=== PATIENT | male | born 1945 | race Caucasian/White ===

== ENCOUNTER 2021-09-30 15:29 | Inpatient (IN) | payer OTHER, BC ==
[2021-09-30] MEDS ORDERED: ACETAMINOPHEN 1000 MG/100 ML BAG IVPB ONE (15:52)
[2021-09-30] MEDS ORDERED: ACETAMINOPHEN INJECTION 100 ML IVPB ONE (16:25)
[2021-09-30 17:17] LABS: VENOUS BASE EXCESS 5.9 mmol/L (-2-2); VENOUS O2 SATURATION 92.2 % (70-80); VENOUS PCO2 56.5 mmHg (38-52); VENOUS PH 7.378 (7.310-7.410)
[2021-09-30 17:25] LABS: BASO % 0.1 % (0-2.0); HEMATOCRIT 29.5 % (35.4-49); HEMOGLOBIN 9.7 GM/dL (11.7-16.9); LYMPH % 2.1 % (8-40); MCH 30.6 pg (25.7-33.7); MEAN CELL VOLUME 92.7 fl (80-96); MEAN PLT VOLUME 9.9 fl (7.5-11.1); MONO % 1.9 % (3.8-10.2); NEUT % 95.9 % (42.8-82.8); PLATELET COUNT 395 10^3/uL (134-434); RBC 3.18 M/mm3 (4.00-5.60); RDW 15.1 % (11.9-15.9); WHITE BLOOD COUNT 23.4 K/mm3 (4.0-10.0)
[2021-09-30 17:26] LABS: INR 1.15 (0.83-1.09); PROTHROMBIN TIME (PATIENT) 13.3 SEC (9.7-13.0)
[2021-09-30 17:29] LABS: ACTIVATED PTT 26.6 SECONDS (25.2-36.5)
[2021-09-30 17:35] LABS: EPI CELLS 6 /uL (0-25.1); HYALINE CASTS 0 /uL (0-3.1); URINE APPEARANCE CLEAR; URINE BACTERIA 1 /uL (0-1359); URINE BILIRUBIN NEGATIVE (NEGATIVE); URINE COLOR YELLOW; URINE GLUCOSE (UA) NEGATIVE (NEGATIVE); URINE KETONE NEGATIVE (NEGATIVE); URINE LEUK ESTERASE NEGATIVE (NEGATIVE); URINE NITRITE NEGATIVE (NEGATIVE); URINE PROTEIN 2+ (NEGATIVE); URINE RBC 330 /uL (0-23.9); URINE UROBILINOGEN 0.2 mg/dL (0.2-1.0); URINE WBC 8 /uL (0-25.8)
[2021-09-30 18:00] LABS: ANISOCYTOSIS 1+; MACROCYTOSIS 0
[2021-09-30 18:29] LABS: CALCIUM 9.1 mg/dL (8.5-10.1)
[2021-09-30 18:30] LABS: ALBUMIN 2.3 g/dl (3.4-5.0); BLOOD UREA NITROGEN 37.2 mg/dL (7-18)
[2021-09-30 18:33] LABS: CREATININE 0.9 mg/dL (0.55-1.3)
[2021-09-30 18:34] LABS: BILIRUBIN,TOTAL 0.4 mg/dL (0.2-1)
[2021-09-30 18:42] LABS: LACTIC ACID 2.7 mmol/L (0.4-2.0)
[2021-09-30] MEDS ORDERED: SODIUM CHLORIDE 0.9% 500 ML INFUS.BAG IV ONE (19:14)
[2021-09-30] MEDS ORDERED: VANCOMYCIN 1 GM in D5W (PRE-DOCKED) 1,000 MG/250 ML IVPB ONE (19:50)
[2021-09-30] MEDS ORDERED: PIPERACILLIN/TAZOB 3.375 GM 3.375 GM in DEXTROSE 5%-WATER - 50 ML IVPB ONE (19:50)
[2021-09-30 20:20] LABS: N-TERMINAL BNP 8401.4 pg/ml (5-450)
[2021-09-30 21:07] LABS: PLATELET ESTIMATE ADEQUATE
[2021-09-30] MEDS ORDERED: VANCOMYCIN 1 GRAM (PRE-DOCKED) 1,000 MG/250 ML BAG IVPB ONE (21:31)
[2021-09-30] MEDS ORDERED: PIPERACILLIN/TAZOB 3.375 GM 3.375 GM/50 ML BAG IVPB ONE (21:32)
[2021-09-30] MEDS ORDERED: clonazePAM 0.5 MG TABLET GT ONE (23:21)
[2021-09-30] MEDS ORDERED: SIMETHICONE 40 MG/0.6 ML BOTTLE GT PRN (23:22)
[2021-09-30] MEDS ORDERED: oxyCODONE HCL 5 MG TABLET GT PRN ×2 (23:24→23:25)
[2021-09-30] MEDS ORDERED: METOPROLOL TARTRATE 25 MG TABLET (FP) ONE (23:40)
[2021-09-30] MEDS ORDERED: METOPROLOL TARTRATE 50 MG TABLET (FP) GT SCH (23:45)
[2021-10-01 00:26] LABS: LACTIC ACID 3.3 mmol/L (0.4-2.0)
[2021-10-01] MEDS ORDERED: SODIUM CHLORIDE 250 ML IV STA ×2 (00:45→10:14)
[2021-10-01] MEDS ORDERED: PIPERACILLIN/TAZOBACTAM 4.5 GM VIAL IVPB ONE ×3 (03:50→10:01)
[2021-10-01] MEDS ORDERED: DEXTROSE 5%-WATER 100 ML IVPB ONE ×4 (03:50→12:34)
[2021-10-01] MEDS: PIPERACILLIN/TAZOB 4.5 GM 4.5 GM in DEXTROSE 5%-WATER 100 ML IVPB SCH ×2 (03:55→10:02)
[2021-10-01 04:40] LABS: LACTIC ACID 2.5 mmol/L (0.4-2.0)
[2021-10-01] MEDS ORDERED: METOPROLOL TARTRATE 50 MG TABLET (FP) ONE ×2 (05:00→21:03)
[2021-10-01] MEDS ORDERED: METOPROLOL TARTRATE 25 MG TABLET (FP) ONE ×2 (05:00→21:03)
[2021-10-01] MEDS: METOPROLOL TARTRATE 50 MG, METOPROLOL TARTRATE 25 MG GT SCH ×3 (05:16→21:11)
[2021-10-01 09:58] LABS: HEMATOCRIT 26.1 % (35.4-49); HEMOGLOBIN 8.4 GM/dL (11.7-16.9); MCH 30.2 pg (25.7-33.7); MCHC 32.4 g/dl (32.0-35.9); MEAN CELL VOLUME 93.2 fl (80-96); MEAN PLT VOLUME 9.5 fl (7.5-11.1); PLATELET COUNT 328 10^3/uL (134-434); RDW 15.1 % (11.9-15.9); WHITE BLOOD COUNT 22.5 K/mm3 (4.0-10.0)
[2021-10-01] MEDS ORDERED: FUROSEMIDE 20 MG TABLET (FP) GT SCH (10:00)
[2021-10-01] MEDS: PANTOPRAZOLE SODIUM 40 MG VIAL IVPUSH SCH (10:03)
[2021-10-01] MEDS: ESCITALOPRAM OXALATE 10 MG TABLET GT SCH (10:05)
[2021-10-01] MEDS: DIGOXIN 0.125 MG TABLET GT SCH (10:06)
[2021-10-01] MEDS: clonazePAM 0.5 MG TABLET GT SCH ×2 (10:07→21:23)
[2021-10-01 10:23] LABS: BLOOD UREA NITROGEN 38.7 mg/dL (7-18); CALCIUM 9.1 mg/dL (8.5-10.1)
[2021-10-01 10:29] LABS: BILIRUBIN,TOTAL 0.8 mg/dL (0.2-1)
[2021-10-01 10:40] LABS: ANISOCYTOSIS 1+; MACROCYTOSIS 0
[2021-10-01] MEDS ORDERED: VANCOMYCIN/WATER FOR INJ (PEG) 1,000 MG/200 ML BAG IVPB SCH (11:00)
[2021-10-01] MEDS ORDERED: CEFEPIME 2 GM in DEXTROSE 5%-WATER - 100 ML IVPB SCH (11:00)
[2021-10-01] MEDS ORDERED: CEFEPIME HCL 2 GM VIAL (RESTRICTED TO ID) ONE (12:34)
[2021-10-01] MEDS: CEFEPIME 2 GM in DEXTROSE 5%-WATER 100 ML IVPB SCH (17:12)
[2021-10-02] MEDS ORDERED: ACETAMINOPHEN 650 MG/20.3 ML ORAL SOLUTION (CUPS) GT PRN (00:41)
[2021-10-02] MEDS ORDERED: DEXTROSE 5%-WATER 100 ML IVPB ONE ×3 (00:53→17:42)
[2021-10-02] MEDS ORDERED: CEFEPIME HCL 2 GM VIAL (RESTRICTED TO ID) ONE ×3 (00:53→17:41)
[2021-10-02] MEDS: CEFEPIME 2 GM in DEXTROSE 5%-WATER 100 ML IVPB SCH ×3 (01:27→18:10)
[2021-10-02] MEDS ORDERED: ALBUTEROL SO4 0.083% IH SOL 2.5 MG/3 ML VIAL.NEB. NEB ONE (01:57)
[2021-10-02] MEDS ORDERED: PIPERACILLIN/TAZOB 4.5 GM 4.5 GM in DEXTROSE 5%-WATER 100 ML IVPB SCH (03:00)
[2021-10-02] MEDS ORDERED: METOPROLOL TARTRATE 25 MG TABLET (FP) ONE ×2 (05:18→17:42)
[2021-10-02] MEDS ORDERED: METOPROLOL TARTRATE 50 MG TABLET (FP) ONE ×2 (05:18→17:42)
[2021-10-02] MEDS: METOPROLOL TARTRATE 50 MG, METOPROLOL TARTRATE 25 MG GT SCH ×3 (06:05→21:55)
[2021-10-02] MEDS ORDERED: SODIUM CHLORIDE 1,000 ML IV SCH (08:45)
[2021-10-02 09:31] LABS: BASO % 0.4 % (0-2.0); EOS % 7.3 % (0-4.5); HEMATOCRIT 27.2 % (35.4-49); LYMPH % 4.1 % (8-40); MCHC 33.1 g/dl (32.0-35.9); MEAN CELL VOLUME 93.6 fl (80-96); MEAN PLT VOLUME 9.1 fl (7.5-11.1); MONO % 10.3 % (3.8-10.2); NEUT % 77.9 % (42.8-82.8); PLATELET COUNT 318 10^3/uL (134-434); RBC 2.91 M/mm3 (4.00-5.60); RDW 15.3 % (11.9-15.9)
[2021-10-02 09:56] LABS: ALBUMIN 2.2 g/dl (3.4-5.0); BLOOD UREA NITROGEN 28.1 mg/dL (7-18); CALCIUM 9.4 mg/dL (8.5-10.1)
[2021-10-02 09:59] LABS: CREATININE 0.8 mg/dL (0.55-1.3)
[2021-10-02] MEDS ORDERED: MULTIVITAMINS (DAILY MVI) TABLET (FP) PO SCH (10:00)
[2021-10-02] MEDS ORDERED: ASCORBIC ACID 500 MG TABLET (FP) GT SCH (10:00)
[2021-10-02 10:01] LABS: BILIRUBIN,TOTAL 0.6 mg/dL (0.2-1); TOT PROT 7.7 g/dl (6.4-8.2)
[2021-10-02] MEDS: PANTOPRAZOLE SODIUM 40 MG VIAL IVPUSH SCH (10:50)
[2021-10-02] MEDS: ESCITALOPRAM OXALATE 10 MG TABLET GT SCH (10:51)
[2021-10-02 10:52] LABS: ARTERIAL BLD GAS O2 SATURATION 97.4 % (95-98); ARTERIAL BLOOD GAS BASE EXCESS 7.6 mmol/L (-2-2); ARTERIAL BLOOD GAS PO2 102.5 mmHg (80-100); ARTERIAL BLOOD GAS pH 7.376 (7.350-7.450)
[2021-10-02] MEDS: DIGOXIN 0.125 MG TABLET GT SCH (10:53)
[2021-10-02] MEDS: clonazePAM 0.5 MG TABLET GT SCH ×2 (10:54→21:55)
[2021-10-02 10:56] LABS: ALLENS TEST POSITIVE; VENT MODE A/C
[2021-10-02 10:57] LABS: VENT RATE 20
[2021-10-02] MEDS ORDERED: VANCOMYCIN/WATER FOR INJ (PEG) 1,000 MG/200 ML BAG IVPB SCH ×2 (11:00→23:00)
[2021-10-02] MEDS: SODIUM CHLORIDE 1,000 ML IV SCH (12:45)
[2021-10-02] MEDS ORDERED: SIMETHICONE 40 MG/0.6 ML BOTTLE GT PRN (13:48)
[2021-10-02] MEDS ORDERED: oxyCODONE HCL 5 MG TABLET GT PRN ×2 (13:48)
[2021-10-02] MEDS: MUPIROCIN 2% TOPICAL OINTMENT FOR DECOLONIZATION NS SCH ×2 (15:00→21:54)
[2021-10-02] MEDS: VANCOMYCIN/WATER FOR INJ (PEG) 1,000 MG/200 ML BAG IVPB SCH ×2 (17:50→22:05)
[2021-10-02] MEDS: CHLORHEXIDINE GLUCONATE 4% CLEANSER FOR DECOLONIZATION TP SCH (21:54)
[2021-10-03] MEDS ORDERED: CEFEPIME HCL 2 GM VIAL (RESTRICTED TO ID) ONE ×2 (02:30→07:28)
[2021-10-03] MEDS ORDERED: DEXTROSE 5%-WATER 100 ML IVPB ONE ×3 (02:30→20:22)
[2021-10-03] MEDS: CEFEPIME 2 GM in DEXTROSE 5%-WATER 100 ML IVPB SCH (02:31)
[2021-10-03] MEDS: SODIUM CHLORIDE 1,000 ML IV SCH (02:42)
[2021-10-03] MEDS ORDERED: METOPROLOL TARTRATE 25 MG TABLET (FP) ONE (05:36)
[2021-10-03] MEDS ORDERED: METOPROLOL TARTRATE 50 MG TABLET (FP) ONE (05:36)
[2021-10-03] MEDS: METOPROLOL TARTRATE 50 MG, METOPROLOL TARTRATE 25 MG GT SCH ×3 (05:38→21:04)
[2021-10-03] MEDS ORDERED: ALBUTEROL SO4 0.083% IH SOL 2.5 MG/3 ML VIAL.NEB. NEB ONE (05:55)
[2021-10-03 07:12] LABS: HEMATOCRIT 28.6 % (35.4-49); HEMOGLOBIN 8.9 GM/dL (11.7-16.9); MCHC 31.3 g/dl (32.0-35.9); MEAN PLT VOLUME 9.9 fl (7.5-11.1); PLATELET COUNT 299 10^3/uL (134-434); RBC 2.98 M/mm3 (4.00-5.60); RDW 15.8 % (11.9-15.9); WHITE BLOOD COUNT 21.2 K/mm3 (4.0-10.0)
[2021-10-03 07:33] LABS: BLOOD UREA NITROGEN 21.2 mg/dL (7-18); CALCIUM 9.2 mg/dL (8.5-10.1); MAGNESIUM 2.2 mg/dL (1.8-2.4)
[2021-10-03 07:36] LABS: CREATININE 0.7 mg/dL (0.55-1.3); PHOSPHOROUS 2.9 mg/dL (2.5-4.9)
[2021-10-03 07:38] LABS: BILIRUBIN,TOTAL 0.6 mg/dL (0.2-1); TOT PROT 7.4 g/dl (6.4-8.2)
[2021-10-03] MEDS: DIGOXIN 0.125 MG TABLET GT SCH (10:45)
[2021-10-03] MEDS: clonazePAM 0.5 MG TABLET GT SCH ×2 (10:45→21:03)
[2021-10-03] MEDS: MUPIROCIN 2% TOPICAL OINTMENT FOR DECOLONIZATION NS SCH ×2 (10:45→21:03)
[2021-10-03] MEDS: ASCORBIC ACID 500 MG TABLET (FP) GT SCH (10:46)
[2021-10-03] MEDS: MULTIVITAMINS (DAILY MVI) TABLET (FP) PO SCH (10:46)
[2021-10-03] MEDS: ESCITALOPRAM OXALATE 10 MG TABLET GT SCH (10:46)
[2021-10-03] MEDS: PIPERACILLIN/TAZOB 4.5 GM 4.5 GM in DEXTROSE 5%-WATER 100 ML IVPB SCH ×3 (11:00→21:04)
[2021-10-03] MEDS ORDERED: LACTATED RINGERS SOLUTION 1000 ML INFUS.BAG IV ONE (11:02)
[2021-10-03] MEDS ORDERED: SODIUM CHLORIDE FOR INHALATION 3 ML VIAL.NEB IH ONE (11:40)
[2021-10-03] MEDS: VANCOMYCIN/WATER FOR INJ (PEG) 1,000 MG/200 ML BAG IVPB SCH ×2 (11:47→23:37)
[2021-10-03] MEDS: ALBUTEROL SO4 2.5/IPRATROPIUM 0.5 INH SOL 3 ML VIAL.NEB. NEB SCH ×3 (12:07→20:34)
[2021-10-03] MEDS: PANTOPRAZOLE SODIUM 40 MG VIAL IVPUSH SCH (13:00)
[2021-10-03 15:02] VITALS: BMI 25.5
[2021-10-03] MEDS: DEXMEDETOMIDINE IN 0.9 % NACL 400 MCG/100 ML VIAL IVPB SCH (15:50)
[2021-10-03] MEDS ORDERED: VASOPRESSIN 20 UNITS/ML VIAL IV ONE (18:40)
[2021-10-03] MEDS: VASOPRESSIN 40 UNITS/100 ML BAG IV SCH (18:45)
[2021-10-03] MEDS ORDERED: PIPERACILLIN/TAZOBACTAM 4.5 GM VIAL IVPB ONE (20:21)
[2021-10-03] MEDS: CHLORHEXIDINE GLUCONATE 4% CLEANSER FOR DECOLONIZATION TP SCH (21:03)
[2021-10-03] MEDS: PHENYLEPHRINE HCL 50,000 MCG in SODIUM CHLORIDE 500 ML IV SCH (21:30)
[2021-10-03] MEDS ORDERED: SCOPOLAMINE HYDROBROMIDE 1 PATCH PATCH.TD72 TD SCH (23:45)
[2021-10-04] MEDS: ALBUTEROL SO4 2.5/IPRATROPIUM 0.5 INH SOL 3 ML VIAL.NEB. NEB SCH ×3 (00:21→08:35)
[2021-10-04] MEDS ORDERED: DEXTROSE 5%-WATER 100 ML IVPB ONE ×3 (00:48→19:14)
[2021-10-04] MEDS ORDERED: PIPERACILLIN/TAZOBACTAM 4.5 GM VIAL IVPB ONE ×3 (00:48→19:13)
[2021-10-04] MEDS: PIPERACILLIN/TAZOB 4.5 GM 4.5 GM in DEXTROSE 5%-WATER 100 ML IVPB SCH ×4 (02:42→21:15)
[2021-10-04] MEDS: METOPROLOL TARTRATE 50 MG, METOPROLOL TARTRATE 25 MG GT SCH ×3 (05:50→22:15)
[2021-10-04] MEDS: ACETAMINOPHEN 650 MG/20.3 ML ORAL SOLUTION (CUPS) GT PRN (06:30)
[2021-10-04 06:46] LABS: HEMATOCRIT 27.9 % (35.4-49); HEMOGLOBIN 8.7 GM/dL (11.7-16.9); MCH 30.4 pg (25.7-33.7); MCHC 31.2 g/dl (32.0-35.9); MEAN CELL VOLUME 97.4 fl (80-96); PLATELET COUNT 276 10^3/uL (134-434); RBC 2.86 M/mm3 (4.00-5.60); WHITE BLOOD COUNT 21.2 K/mm3 (4.0-10.0)
[2021-10-04 07:20] LABS: CALCIUM 9.2 mg/dL (8.5-10.1)
[2021-10-04 07:21] LABS: ALBUMIN 1.9 g/dl (3.4-5.0)
[2021-10-04 07:24] LABS: PHOSPHOROUS 3.3 mg/dL (2.5-4.9)
[2021-10-04 07:25] LABS: TOT PROT 7.3 g/dl (6.4-8.2)
[2021-10-04 07:26] LABS: BILIRUBIN,TOTAL 0.8 mg/dL (0.2-1)
[2021-10-04] MEDS: PHENYLEPHRINE HCL 50,000 MCG in SODIUM CHLORIDE 500 ML IV SCH ×2 (08:15→22:13)
[2021-10-04] MEDS: VANCOMYCIN/WATER FOR INJ (PEG) 1,000 MG/200 ML BAG IVPB SCH ×2 (10:09→22:15)
[2021-10-04] MEDS: ASCORBIC ACID 500 MG TABLET (FP) GT SCH (10:10)
[2021-10-04] MEDS: MULTIVITAMINS (DAILY MVI) TABLET (FP) PO SCH (10:10)
[2021-10-04] MEDS: PANTOPRAZOLE SODIUM 40 MG VIAL IVPUSH SCH (10:10)
[2021-10-04] MEDS: ESCITALOPRAM OXALATE 10 MG TABLET GT SCH (10:10)
[2021-10-04] MEDS: DIGOXIN 0.125 MG TABLET GT SCH (10:11)
[2021-10-04] MEDS: MUPIROCIN 2% TOPICAL OINTMENT FOR DECOLONIZATION NS SCH ×2 (10:12→22:13)
[2021-10-04] MEDS: clonazePAM 0.5 MG TABLET GT SCH ×2 (10:12→22:13)
[2021-10-04] MEDS: VASOPRESSIN 40 UNITS/100 ML BAG IV SCH ×2 (15:55→19:11)
[2021-10-04] MEDS: DEXMEDETOMIDINE IN 0.9 % NACL 400 MCG/100 ML VIAL IVPB SCH (17:00)
[2021-10-04] MEDS: CHLORHEXIDINE GLUCONATE 4% CLEANSER FOR DECOLONIZATION TP SCH (21:34)
[2021-10-05] MEDS ORDERED: DEXTROSE 5%-WATER 100 ML IVPB ONE ×4 (00:22→21:19)
[2021-10-05] MEDS ORDERED: PIPERACILLIN/TAZOBACTAM 4.5 GM VIAL IVPB ONE ×4 (00:22→21:19)
[2021-10-05] MEDS: PIPERACILLIN/TAZOB 4.5 GM 4.5 GM in DEXTROSE 5%-WATER 100 ML IVPB SCH ×4 (02:22→21:27)
[2021-10-05] MEDS: METOPROLOL TARTRATE 50 MG, METOPROLOL TARTRATE 25 MG GT SCH (07:13)
[2021-10-05 07:15] LABS: HEMATOCRIT 27.2 % (35.4-49); HEMOGLOBIN 8.5 GM/dL (11.7-16.9); MCH 31.4 pg (25.7-33.7); MCHC 31.1 g/dl (32.0-35.9); MEAN CELL VOLUME 101.2 fl (80-96); MEAN PLT VOLUME 9.9 fl (7.5-11.1); PLATELET COUNT 322 10^3/uL (134-434); RBC 2.69 M/mm3 (4.00-5.60); RDW 16.8 % (11.9-15.9); WHITE BLOOD COUNT 22.5 K/mm3 (4.0-10.0)
[2021-10-05 07:24] LABS: BLOOD UREA NITROGEN 33.3 mg/dL (7-18); CALCIUM 9.4 mg/dL (8.5-10.1)
[2021-10-05 07:28] LABS: CREATININE 1.6 mg/dL (0.55-1.3)
[2021-10-05] MEDS: NOREPINEPHRINE BITARTRATE 16,000 MCG in SODIUM CHLORIDE 484 ML IV SCH (10:30)
[2021-10-05] MEDS: MUPIROCIN 2% TOPICAL OINTMENT FOR DECOLONIZATION NS SCH ×2 (10:51→21:27)
[2021-10-05] MEDS: ASCORBIC ACID 500 MG TABLET (FP) GT SCH (10:52)
[2021-10-05] MEDS: MULTIVITAMINS (DAILY MVI) TABLET (FP) PO SCH (10:52)
[2021-10-05] MEDS: ESCITALOPRAM OXALATE 10 MG TABLET GT SCH (10:52)
[2021-10-05] MEDS: clonazePAM 0.5 MG TABLET GT SCH ×2 (10:53→21:27)
[2021-10-05] MEDS: PANTOPRAZOLE SODIUM 40 MG VIAL IVPUSH SCH (10:55)
[2021-10-05] MEDS ORDERED: ASCORBIC ACID 500 MG/5 ML UNIT DOSE CUP GT SCH (11:39)
[2021-10-05] MEDS: DIGOXIN 0.125 MG TABLET GT SCH (12:41)
[2021-10-05] MEDS: DIGOXIN 250 MCG/5 ML LIQUID GT SCH (12:41)
[2021-10-05] MEDS ORDERED: SODIUM CHLORIDE 0.45% 1,000 ML IV SCH (14:00)
[2021-10-05] MEDS ORDERED: EPINEPHrine 1:10,000 (P-F SYR) 1 MG/10 ML DISP.SYRIN ONE (15:37)
[2021-10-05] MEDS ORDERED: ALTEPLASE 100MG 100 ML ONE (15:43)
[2021-10-05] MEDS ORDERED: HEPARIN NA (PORCINE) 5,000 UNITS/ML 1ML VIAL IVPUSH PRN ×2 (15:54)
[2021-10-05] MEDS ORDERED: HEPARIN NA (PORCINE) 5,000 UNITS/ML 1ML VIAL IVPUSH ONE (15:54)
[2021-10-05 16:23] LABS: ARTERIAL BLD GAS O2 SATURATION 94.7 % (95-98); ARTERIAL BLOOD GAS BASE EXCESS -13.1 mmol/L (-2-2); ARTERIAL BLOOD GAS PO2 107.4 mmHg (80-100)
[2021-10-05 16:28] LABS: ARTERIAL BLOOD GAS pH 7.012 (7.350-7.450)
[2021-10-05] MEDS: HEPARIN INFUSION - 25,000 UNITS/500 ML INFUS.BAG IVPB SCH (16:28)
[2021-10-05 16:29] LABS: ALLENS TEST POSITIVE; VENT MODE A/C
[2021-10-05 16:30] LABS: VENT RATE 16
[2021-10-05] MEDS ORDERED: FENTANYL NS IVPB 500 MCG/100 ML BAG IVPB ONE (16:53)
[2021-10-05] MEDS: DEXMEDETOMIDINE IN 0.9 % NACL 400 MCG/100 ML VIAL IVPB SCH (17:14)
[2021-10-05] MEDS: FENTANYL NS IVPB 500 MCG/100 ML BAG IVPB SCH (17:15)
[2021-10-05 17:51] LABS: HEMATOCRIT 25.2 % (35.4-49); HEMOGLOBIN 7.6 GM/dL (11.7-16.9); MCH 30.9 pg (25.7-33.7); MEAN CELL VOLUME 102.9 fl (80-96); MEAN PLT VOLUME 9.9 fl (7.5-11.1); PLATELET COUNT 300 10^3/uL (134-434); RBC 2.45 M/mm3 (4.00-5.60); RDW 17.3 % (11.9-15.9); WHITE BLOOD COUNT 25.7 K/mm3 (4.0-10.0)
[2021-10-05 18:15] LABS: ALBUMIN 1.8 g/dl (3.4-5.0); BLOOD UREA NITROGEN 44.2 mg/dL (7-18); CALCIUM 8.9 mg/dL (8.5-10.1); MAGNESIUM 2.4 mg/dL (1.8-2.4)
[2021-10-05 18:18] LABS: CREATININE 2.4 mg/dL (0.55-1.3); PHOSPHOROUS 6.3 mg/dL (2.5-4.9)
[2021-10-05 18:20] LABS: BILIRUBIN,TOTAL 0.9 mg/dL (0.2-1); TOT PROT 7.4 g/dl (6.4-8.2)
[2021-10-05] MEDS: VASOPRESSIN 40 UNITS/100 ML BAG IV SCH ×2 (19:45→20:28)
[2021-10-05] MEDS: PHENYLEPHRINE HCL 50,000 MCG in SODIUM CHLORIDE 500 ML IV SCH (21:17)
[2021-10-05] MEDS: ACETAMINOPHEN 650 MG/20.3 ML ORAL SOLUTION (CUPS) GT PRN (21:27)
[2021-10-05] MEDS: CHLORHEXIDINE GLUCONATE 4% CLEANSER FOR DECOLONIZATION TP SCH (21:28)
[2021-10-05] MEDS: LACTATED RINGERS SOLUTION 1,000 ML/1,000 ML INFUS.BAG IV SCH (22:07)
[2021-10-05] MEDS ORDERED: IBUPROFEN 800 MG/8 ML IJ IVPB ONE (22:36)
[2021-10-06] MEDS: FENTANYL NS IVPB 500 MCG/100 ML BAG IVPB SCH ×4 (00:12→18:25)
[2021-10-06] MEDS ORDERED: DEXTROSE 5%-WATER 100 ML IVPB ONE ×3 (01:37→16:49)
[2021-10-06] MEDS ORDERED: PIPERACILLIN/TAZOBACTAM 4.5 GM VIAL IVPB ONE ×3 (01:37→16:49)
[2021-10-06] MEDS: PIPERACILLIN/TAZOB 4.5 GM 4.5 GM in DEXTROSE 5%-WATER 100 ML IVPB SCH ×2 (02:17→09:17)
[2021-10-06] MEDS: NOREPINEPHRINE BITARTRATE 16,000 MCG in SODIUM CHLORIDE 484 ML IV SCH ×2 (03:40→17:05)
[2021-10-06] MEDS ORDERED: LACTATED RINGERS SOLUTION 1000 ML INFUS.BAG IV ONE (06:31)
[2021-10-06 06:46] LABS: ARTERIAL BLD GAS O2 SATURATION 98.5 % (95-98); ARTERIAL BLOOD GAS BASE EXCESS -13.4 mmol/L (-2-2); ARTERIAL BLOOD GAS PO2 167.2 mmHg (80-100)
[2021-10-06 06:58] LABS: VENT MODE A/C; VENT RATE 20
[2021-10-06] MEDS: PHENYLEPHRINE HCL 50,000 MCG in SODIUM CHLORIDE 500 ML IV SCH ×2 (07:00→15:47)
[2021-10-06 07:05] LABS: ARTERIAL BLOOD GAS pH 7.117 (7.350-7.450)
[2021-10-06 07:21] LABS: MAGNESIUM 2.2 mg/dL (1.8-2.4)
[2021-10-06 07:25] LABS: PHOSPHOROUS 7.1 mg/dL (2.5-4.9)
[2021-10-06 08:42] LABS: LACTIC ACID 2.6 mmol/L (0.4-2.0)
[2021-10-06] MEDS: DIGOXIN 250 MCG/5 ML LIQUID GT SCH (09:40)
[2021-10-06] MEDS: clonazePAM 0.5 MG TABLET GT SCH (09:40)
[2021-10-06] MEDS: MUPIROCIN 2% TOPICAL OINTMENT FOR DECOLONIZATION NS SCH (09:42)
[2021-10-06] MEDS: HEPARIN INFUSION - 25,000 UNITS/500 ML INFUS.BAG IVPB SCH ×2 (09:44→16:00)
[2021-10-06] MEDS: PANTOPRAZOLE SODIUM 40 MG VIAL IVPUSH SCH (09:45)
[2021-10-06 09:49] LABS: ALBUMIN 1.7 g/dl (3.4-5.0); CALCIUM 8.2 mg/dL (8.5-10.1)
[2021-10-06 09:50] LABS: BLOOD UREA NITROGEN 46.9 mg/dL (7-18)
[2021-10-06 09:53] LABS: CREATININE 3.1 mg/dL (0.55-1.3)
[2021-10-06 09:54] LABS: BILIRUBIN,TOTAL 1.5 mg/dL (0.2-1)
[2021-10-06 09:56] LABS: TOT PROT 6.9 g/dl (6.4-8.2)
[2021-10-06] MEDS ORDERED: MULTIVIT-MINERALS ORAL LIQUID GT SCH (10:00)
[2021-10-06] MEDS ORDERED: ESCITALOPRAM OXALATE 5 MG/5 ML GT SCH (10:00)
[2021-10-06] MEDS: FLUDROCORTISONE ACETATE 0.1 MG TABLET (FP) PO SCH ×2 (10:02→11:00)
[2021-10-06] MEDS: HYDROCORTISONE SOD SUCCINATE 100 MG/2 ML VIAL IVPUSH SCH ×2 (10:03→15:47)
[2021-10-06 12:44] LABS: HEMATOCRIT 25.7 % (35.4-49); HEMOGLOBIN 7.8 GM/dL (11.7-16.9); MCH 30.9 pg (25.7-33.7); MCHC 30.5 g/dl (32.0-35.9); MEAN CELL VOLUME 101.4 fl (80-96); MEAN PLT VOLUME 10.2 fl (7.5-11.1); PLATELET COUNT 175 10^3/uL (134-434); RBC 2.53 M/mm3 (4.00-5.60); RDW 17.2 % (11.9-15.9)
[2021-10-06] MEDS: ACETAMINOPHEN 650 MG/20.3 ML ORAL SOLUTION (CUPS) GT PRN (12:57)
[2021-10-06] MEDS ORDERED: FLUDROCORTISONE ACETATE 0.1 MG TABLET (FP) PO SCH (13:15)
[2021-10-06] MEDS ORDERED: VASOPRESSIN 20 UNITS/ML VIAL IV ONE (14:10)
[2021-10-06] MEDS: LACTATED RINGERS SOLUTION 1,000 ML/1,000 ML INFUS.BAG IV SCH (14:20)
[2021-10-06] MEDS: VASOPRESSIN 40 UNITS/100 ML BAG IV SCH ×2 (14:21→18:26)
[2021-10-06 14:47] LABS: ANISOCYTOSIS 0; MACROCYTOSIS 0
[2021-10-06] MEDS ORDERED: PIPERACILLIN/TAZOB 4.5 GM 4.5 GM in DEXTROSE 5%-WATER 100 ML IVPB SCH (18:00)
[2021-10-06] MEDS: DEXMEDETOMIDINE IN 0.9 % NACL 400 MCG/100 ML VIAL IVPB SCH (18:40)
[2021-10-06 19:40] LABS: ARTERIAL BLD GAS O2 SATURATION 54.5 % (95-98); ARTERIAL BLOOD GAS BASE EXCESS -19.2 mmol/L (-2-2); ARTERIAL BLOOD GAS PO2 54.2 mmHg (80-100)
[2021-10-06 19:42] LABS: ARTERIAL BLOOD GAS pH 6.776 (7.350-7.450)
[2021-10-06 20:19] VITALS: BP 49/27; PULSE 0; TEMP 97.9
[2021-10-07] MEDS ORDERED: FLUDROCORTISONE ACETATE 0.1 MG TABLET (FP) PO SCH (10:00)
== END 2021-10-06 21:08 | disposition expired | DRG 870 ==
LOC: JER 15:29 → JERBED 19:25 → J5S 10-01 03:37 → JICU 10-02 11:43
PROVIDERS: ADMIT Internal Medicine; ATTEND Family Medicine
PROC: 05H633Z Insertion of Infusion Device into Left Subclavian Vein, Percutaneous Approach (ICD-10-PCS; principal; 2021-10-05)
PROC: 5A1955Z Respiratory Ventilation, Greater than 96 Consecutive Hours (ICD-10-PCS; 2021-10-05)
DX: A41.89 Other specified sepsis (principal); J18.9 Pneumonia, unspecified organism; I26.99 Other pulmonary embolism without acute cor pulmonale; R53.2 Functional quadriplegia; R65.21 Severe sepsis with septic shock; J96.11 Chronic respiratory failure with hypoxia; J96.12 Chronic respiratory failure with hypercapnia; E87.2 Acidosis; E87.0 Hyperosmolality and hypernatremia; N17.9 Acute kidney failure, unspecified; Z93.0 Tracheostomy status; D72.829 Elevated white blood cell count, unspecified; R79.89 Other specified abnormal findings of blood chemistry; I48.91 Unspecified atrial fibrillation; I11.0 Hypertensive heart disease with heart failure; I50.9 Heart failure, unspecified; R50.9 Fever, unspecified; I95.9 Hypotension, unspecified; F41.8 Other specified anxiety disorders; R13.19 Other dysphagia; F20.9 Schizophrenia, unspecified; D64.9 Anemia, unspecified; I46.9 Cardiac arrest, cause unspecified; Z99.81 Dependence on supplemental oxygen; Z95.2 Presence of prosthetic heart valve; Z86.73 Personal history of transient ischemic attack (TIA), and cerebral infarction without residual deficits
CPT/HCPCS: 0241U-QW; 36415; 36600; 71045-TC-FY; 74176-TC; 80048; 80053; 80162; 81003; 82272; 82803; 82962; 83605; 83735; 83880; 84100; 84484; 85025; 85027; 85610; 85730; 86850; 86900; 86901; 87040; 87070; 87086; 87186; 87205; 87899; 93005; 93010; 93970-TC; 94002; 94640; 99285-25; C9803-CS; G0480; J1644; J2997; J3490; U0003; U0005